=== PATIENT | male | born 1995 | race Caucasian/White ===

== ENCOUNTER 2018-04-17 20:08 | Emergency (ER) | payer OTHER ==
[2018-04-17 20:22] VITALS: BP 142/84
[2018-04-17] MEDS ORDERED: BACITRACIN OINT TOP STA (21:16)
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
[2018-04-17] MEDS ORDERED: HYDROcod/ACET 5/325 Prepack 4 PO STA (21:23)
== END 2018-04-17 21:37 | disposition home or self-care (01) ==
LOC: ED 20:08
DX: S40.212A Abrasion of left shoulder, initial encounter (principal); S50.312A Abrasion of left elbow, initial encounter; S80.212A Abrasion, left knee, initial encounter; Y93.51 Activity, roller skating (inline) and skateboarding; Y93.I9 Activity, other involving external motion; Y99.8 Other external cause status
CPT/HCPCS: 99283; A9270

== ENCOUNTER 2019-01-22 12:11 | Emergency (ER) | payer OTHER ==
[2019-01-22 12:20] VITALS: BP 141/81
[2019-01-22] MEDS ORDERED: LIDOCAINE-EPINEPH-TETRACAINE 3 ML SYRINGE TOP STA (12:38)
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
== END 2019-01-22 13:35 | disposition home or self-care (01) ==
LOC: ED 12:11
DX: S01.112A Laceration without foreign body of left eyelid and periocular area, initial encounter (principal); Y04.2XXA Assault by strike against or bumped into by another person, initial encounter
CPT/HCPCS: 12011; 99282; 99283